=== PATIENT | female | born 1965 | race American Indian/Alaskan Native ===

== ENCOUNTER 2018-12-22 07:17 | Day surgery (SDC) | payer OTHER ==
--- NOTE | 2018-12-22 07:14 | Anesthesia Consultation ---
Anesthesia Consult and Med Hx Date of service: 12/22/18 - Airway Anesthetic Teeth Evaluation: Poor, Chipped ROM Head & Neck: Adequate Mental/Hyoid Distance: Adequate Mallampati Class: Class I Intubation Access Assessment: Good - Pulmonary Exam CTA: Yes - Cardiac Exam Cardiac Exam: RRR - Pre-Operative Health Status ASA Pre-Surgery Classification: ASA2 Proposed Anesthetic Plan: MAC - Pulmonary Hx Smoking: Yes
--- NOTE | 2018-12-22 07:14 | Anesthesia Day of Surgery ---
Anesthesia Day of Surgery - Day of Surgery Patient Examined: Yes Patient H&P Reviewed: Yes Patient is NPO: Yes
[2018-12-22] MEDS ORDERED: WATER FOR IRRIG STERILE IR ONE (07:34)
[2018-12-22] MEDS ORDERED: WATER FOR IRRIG STERILE ONE (07:34)
[2018-12-22] MEDS ORDERED: NACL 0.9% 1000 ML 1,000 ML IV SCH (07:47)
[2018-12-22] MEDS ORDERED: VERSED ONE (08:50)
[2018-12-22] MEDS ORDERED: DIPRIVAN 10 MG/ML IV ONE ×2 (08:50)
[2018-12-22] MEDS ORDERED: XYLOCAINE 2% UROJET ONE (09:09)
[2018-12-22] MEDS ORDERED: XYLOCAINE 2% UROJET UR ONE (09:17)
--- NOTE | 2018-12-22 09:33 | Procedure Note ---
Date of procedure: 12/22/18 Pre-op diagnosis: Colon Polyp Screening/ Hematochezia Post-op diagnosis: other (Hematochezia secondary to Moderate Internal Hemorrhoids (s/p Banding x 3)/ Diverticular Disease involving the Proximal and Left Colon/ No Colon Polyps noted) Procedure: Colonoscopy/ Flexible Sigmoidoscopy with Hemorrhoidal Banding x 3 Anesthesia: MAC Surgeon: GEOFF BARONE Estimated blood loss: minimal Pathology: none Condition: stable Disposition: same day (Encourage fiber supplements and avoid aspirin and NSAID for 5 days and follow up in 1 to 2 weeks ([phone]).)
[2018-12-22 09:55] VITALS: BP 142/70
--- NOTE | 2018-12-22 10:35 | Operative Report ---
PROCEDURE: Colonoscopy. INDICATIONS: A 53-year-old -[place] female who had a colonoscopy done as part of colon polyp screening. She also had been having some hematochezia. Colonoscopy was done to assess for the problem and to also assess and see whether the patient had any associated internal hemorrhoids that might require banding. In addition, she has a family history of cancer. The patient's sister had uterine cancer. DESCRIPTION OF PROCEDURE: Colonoscopy was done after getting informed consent with MAC anesthesia. Initial rectal exam was unremarkable. Instrument was passed through the rectum onto the cecum, which was identified with ileocecal valve and appendiceal orifice. Visualization was fair to good. There was scattered diverticula noted in the proximal colon and the cecum. The ascending colon, the transverse colon appeared normal and there were a few scattered diverticula noted in the left colon involving the descending colon and the sigmoid. The rectum showed moderate internal hemorrhoid, which may have been the cause of the patient's hematochezia. ASSESSMENT: Hematochezia secondary to moderate internal hemorrhoids. No colon polyps noted. Scattered diverticular disease noted in the left and the proximal colon. No biopsies were done. There was no bleeding or complications associated with the colonoscopy. The patient will have a flex sig with banding done and we encouraged her to take fiber supplements and follow up in the office in 1-2 weeks' time. RN, Yesenia Jett was in the room throughout the entirety of the procedure. JOB# [id number] MATT/LORENA
--- NOTE | 2018-12-22 11:58 | Operative Report ---
PROCEDURE: Flexible sigmoidoscopy with banding x3. INDICATIONS: This is a 53-year-old -[place] female, who was having hematochezia. Colonoscopy showed presence of moderate diverticular disease, which was the possible cause of the hematochezia and some scattered diverticular disease involving the proximal as well as the left colon. DESCRIPTION OF THE PROCEDURE: Procedure was done after getting informed consent. EGD with MAC anesthesia. EGD scope with the banding apparatus was introduced and retroflexed. The largest hemorrhoids were then suctioned into the suction channel and 3 bands were released. There was minimal to no bleeding associated with the procedure. At the end of the procedure, some lidocaine was injected into the anal canal. There were no complications associated with the procedure. IMPRESSION: Hematochezia, status post banding x3. Again, there was minimal bleeding with the procedure. No complications associated with the procedure. The patient will be given some analgesics if needed and also to avoid aspirin and aspirin-related products and follow up in the office in 1-2 weeks' time. RNYesenia was in the room throughout the entirety of the procedure. JOB# [id number] MATT/LORENA
[2018-12-23] MEDS ORDERED: NACL 0.9% 1000 ML 1,000 ML IV SCH (07:00)
== END 2018-12-22 10:00 | disposition home or self-care (01) ==
LOC: GIO 07:17
DX: K64.8 Other hemorrhoids (principal); K57.30 Diverticulosis of large intestine without perforation or abscess without bleeding; K92.1 Melena; Z87.891 Personal history of nicotine dependence
CPT/HCPCS: 45378; 46221; J2250; J2704

== ENCOUNTER 2022-01-14 04:31 | Emergency (ER) | payer SELFPAY ==
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
[2022-01-14 04:56] VITALS: BP 166/61
--- NOTE | 2022-01-14 05:11 | XRay Report ---
LEFT WRIST 3 VIEWS INDICATION / CLINICAL INFORMATION: Left wrist pain and swelling COMPARISON: None available. FINDINGS: BONES and JOINT(S): There is an acute mildly displaced distal radial metaphyseal fracture. No disloca tion. No significant arthritis. SOFT TISSUES: Mild generalized edema is noted along the wrist. ADDITIONAL FINDINGS: None. IMPRESSION: 1. Acute distal left radial fracture. Signer Name: Saulo Medina MD Signed: 01/14/2022 5:07 AM Workstation Name: [id number]
== END 2022-01-14 05:51 | disposition home or self-care (01) ==
LOC: ED 04:31
DX: S52.592A Other fractures of lower end of left radius, initial encounter for closed fracture (principal); W18.39XA Other fall on same level, initial encounter; Y93.89 Activity, other specified; Y92.89 Other specified places as the place of occurrence of the external cause; Y99.8 Other external cause status
CPT/HCPCS: 99283

== ENCOUNTER 2022-04-08 14:22 | Emergency (ER) | payer SELFPAY ==
[2022-04-08 14:32] VITALS: BP 121/63
--- NOTE | 2022-04-08 14:33 | Event Note ---
ED Screening Note ED Screening Note: 57-year-old female presents to the ED complaining of abdominal pain with nausea and vomiting 5 days. Denies any medical history states that she ate some crystal prior to the nausea and vomiting. No active vomiting at present This initial assessment/diagnostic orders/clinical plan/treatment(s) is/are subject to change based on patients health status, clinical progression and re- assessment by fellow clinical providers in the ED. Further treatment and workup at subsequent clinical providers discretion. Patient/guardian urged not to elope from the ED as their condition may be serious if not clinically assessed and managed. Initial orders include:
[2022-04-08 15:52] LABS: Hemoglobin 14.8 gm/dl (10.1-14.3); Mean Corpuscular HGB Conc 34 % (30-34); Mean Corpuscular Volume 92 fl (79-97); Platelet Count 172 K/mm3 (140-440); Red Blood Count 4.79 M/mm3 (3.65-5.03); Red Cell Distribution Width 13.1 % (13.2-15.2)
[2022-04-08 17:22] LABS: Alanine Aminotransferase 23 units/L (7-56); Albumin 4.4 g/dL (3.9-5); Blood Urea Nitrogen 13 mg/dL (7-17); Calcium 9.3 mg/dL (8.4-10.2); Hemolysis Index 4
[2022-04-08 17:26] LABS: BUN/Creatinine Ratio 19
== END 2022-04-08 16:00 | disposition left against medical advice (07) ==
LOC: ED 14:22
DX: R10.9 Unspecified abdominal pain (principal); Z53.21 Procedure and treatment not carried out due to patient leaving prior to being seen by health care provider
CPT/HCPCS: 36415; 80053; 83690; 85027